=== PATIENT | female | born 2000 | race Caucasian/White ===

== ENCOUNTER → 2018-02-09 | Outpatient (CLI) | payer BC ==
[2018-02-10 03:18] LABS: Dermato. farinae IgE 0.44 kU/L; Egg White IgE 0.18 kU/L; Peanut IgE <0.10 kU/L
[2018-02-10 11:26] LABS: Almond IgE <0.35 kU/L (<0.35); Almond IgE Class CLASS 0; Cashew IgE <0.35 kU/L (<0.35); Crab IgE 0.83 kU/L (<0.35); Crab IgE Class CLASS II; Egg Yolk IgE Class CLASS 0; Pecan IgE <0.35 kU/L (<0.35); Pecan IgE Class CLASS 0; Salmon IgE <0.35 kU/L (<0.35); Salmon IgE Class CLASS 0; Tuna IgE <0.35 kU/L (<0.35); Tuna IgE Class CLASS 0
[2018-02-10 11:27] LABS: Latex IgE Class CLASS 0; Lobster IgE 0.58 kU/L (<0.35); Lobster IgE Class CLASS I
== END | disposition home or self-care (01) ==
LOC: LABWHC1 14:14
PROVIDERS: ATTEND Allergy & Immunology
DX: T78.3XXA Angioneurotic edema, initial encounter (principal)
CPT/HCPCS: 36415; 83520; 86003; 86160

== ENCOUNTER 2018-02-16 16:52 | Emergency (ER) | payer BC ==
[2018-02-16] MEDS ORDERED: methylPREDNISolone SOD SUCCI 125 MG/2 ML VIAL IV STA (16:55)
[2018-02-16] MEDS ORDERED: diphenhydrAMINE 50 MG/ML 1 ML VIAL IVP STA (16:55)
[2018-02-16] MEDS ORDERED: SODIUM CHLORIDE 0.9% 1,000 ML IV STA (16:55)
--- NOTE | 2018-02-16 17:03 | ED ---
General Adult HPI - General Chief complaint: Allergic Reaction Stated complaint: allergic reaction Time Seen by Provider: 02/16/18 16:53 Source: patient, RN notes reviewed Mode of arrival: EMS Limitations: no limitations - History of Present Illness Initial comments: Patient is a pleasant 18-year-old female presenting to the emergency department with ALLERGIC reaction. Patient did have ALLERGY testing done prior to arrival. Patient started getting itchy and feeling that her throat was swelling. Patient did receive oral Benadryl and Pepcid and steroid. Patient was starting to feel better and then symptoms did worsen. Patient did receive an injection of EpiPen. Patient is feeling jittery from that. Patient still feels like her throat is somewhat swollen. Otherwise no dyspnea. - Related Data Home Medications Medication Instructions Recorded Confirmed Albuterol Sulfate [Proair Hfa] 2 puff INHALATION RT-QID PRN 02/16/18 02/16/18 Budesonide/Formoterol Fumarate 2 puff INHALATION RT-BID 02/16/18 02/16/18 [Symbicort 160-4.5 Mcg Inhaler] Fluticasone Nasal [place] [Flonase 1 - 2 spray EA NOSTRIL BID PRN 02/16/18 Nasal [place]] Previous Rx's Medication Instructions Recorded predniSONE 20 mg PO BID #10 tab 02/16/18 Allergies Allergy/AdvReac Type Severity Reaction Status Date / Time iodine Allergy Unknown Verified 02/16/18 17:17 Milk Containing Products Allergy Unknown Verified 02/16/18 17:17 [Dairy] shellfish derived [Shellfish] Allergy Unknown Verified 02/16/18 17:17 soy Allergy Unknown Verified 02/16/18 17:17 Review of Systems ROS Statement: Those systems with pertinent positive or pertinent negative responses have been documented in the HPI. ROS Other: All systems not noted in ROS Statement are negative. Constitutional: Denies: fever Eyes: Denies: eye pain ENT: Denies: ear pain Respiratory: Denies: cough, dyspnea Cardiovascular: Denies: chest pain Endocrine: Denies: fatigue Gastrointestinal: Denies: abdominal pain Genitourinary: Denies: dysuria Musculoskeletal: Denies: back pain Skin: Reports: rash (Resolved) Neurological: Denies: weakness Past Medical History Past Medical History: Asthma History of Any Multi-Drug Resistant Organisms: None Reported Past Surgical History: No Surgical Hx Reported Past Psychological History: No Psychological Hx Reported Smoking Status: Never smoker Past Alcohol Use History: None Reported Past Drug Use History: None Reported General Exam Limitations: no limitations General appearance: alert, in no apparent distress Head exam: Present: atraumatic Eye exam: Present: normal appearance, PERRL ENT exam: Present: normal oropharynx, other (No signs of angioedema of the face , tongue, or pharynx.) Neck exam: Present: normal inspection Respiratory exam: Present: normal lung sounds bilaterally Cardiovascular Exam: Present: regular rate, normal rhythm GI/Abdominal exam: Present: soft. Absent: tenderness Extremities exam: Present: normal inspection Neurological exam: Present: alert Psychiatric exam: Present: normal affect, normal mood Skin exam: Present: other (Trace amount of erythema on the back in a scratching type pattern) Course Vital Signs 02/16/18 16:56 Temperature 98 F Pulse Rate 122 H Respiratory 18 Rate Blood Pressure 164/84 O2 Sat by Pulse 100 Oximetry - Reevaluation(s) Reevaluation #1: 02/16/18 17:33 Patient is reevaluated and states she is feeling better. Medical Decision Making - Medical Decision Making Patient reevaluated and is symptom-free. Patient requesting discharge home. Patient denies dyspnea. Patient updated on need to continue Benadryl for the next 5 days and need for follow-up as well as need to return if symptoms worsen. Disposition Clinical Impression: Allergic reaction Disposition: HOME SELF-CARE Condition: Stable Instructions: Allergies (ED), Anaphylaxis (ED) Additional Instructions: Please follow-up with your wildlife policy professional and primary care physician in the next day or 2 for recheck. Return for any swelling of the throat or tongue or face, any difficulty in breathing, worsening symptoms or any other concerns. Continue with Benadryl: 25-50 mg 4 times a day for the next 5 days. Prescriptions: predniSONE 20 mg PO BID #10 tab Is patient prescribed a controlled substance at d/c from ED?: No Referrals: Mary Dacosta MD [STAFF PHYSICIAN] - 1-2 days Time of Disposition: 20:16
[2018-02-16 20:33] VITALS: BP 124/66; PULSE 100; RESP 20; TEMP 97.5
== END 2018-02-16 20:33 | disposition home or self-care (01) ==
LOC: EC 16:52
DX: T78.40XA Allergy, unspecified, initial encounter (principal); J45.909 Unspecified asthma, uncomplicated; Z91.011 Allergy to milk products; Z91.013 Allergy to seafood; Z91.018 Allergy to other foods; Z91.048 Other nonmedicinal substance allergy status; Z79.51 Long term (current) use of inhaled steroids
CPT/HCPCS: 99285; 96374; 96375; 96361 ×3; J1200; J2930

== ENCOUNTER 2018-02-18 00:51 | Emergency (ER) | payer BC ==
[2018-02-18] MEDS ORDERED: FAMOTIDINE 20 MG/2 ML VIAL IV STA (01:08)
[2018-02-18] MEDS ORDERED: methylPREDNISolone SOD SUCCI 125 MG/2 ML VIAL IV STA (01:08)
--- NOTE | 2018-02-18 01:13 | ED ---
Allergic Reaction HPI - General Chief complaint: Allergic Reaction Stated complaint: allergic reaction Time Seen by Provider: 02/18/18 01:01 Source: patient, family Mode of arrival: ambulatory Limitations: no limitations - History of Present Illness Initial Comments: 18-year-old female patient presents to the emergency department today for complaints of bilateral hand and throat swelling. Patient states that she had ALLERGY testing performed yesterday and had of that reaction while at the office. Patient states that they administered 4 doses of EpiPen at the office which did not help or improve her symptoms with a central here for further evaluation. Patient was seen here and received additional medication and eventually patient was able to be discharged home. Patient states that she did take 50 mg of prednisone this morning around 0900. Patient states that she went to bed and was feeling fine however woke up about an hour ago with hand swelling and felt like her throat was swollen. Patient states it is difficult to swallow. She denies any shortness of breath or chest pain. Denies any itching or rash. Patient did take 50 mg of Benadryl by mouth at midnight. Patient denies any recent rash, fever, chills, abdominal pain, nausea, vomiting , diarrhea, constipation, back pain, numbness, tingling, dizziness, weakness, hematuria, dysuria, urinary urgency, urinary frequency, headache, visual changes , or any other complaints. - Related Data Home Medications Medication Instructions Recorded Confirmed Albuterol Sulfate [Proair Hfa] 2 puff INHALATION RT-QID PRN 02/16/18 02/18/18 Budesonide/Formoterol Fumarate 2 puff INHALATION RT-BID 02/16/18 02/18/18 [Symbicort 160-4.5 Mcg Inhaler] Fluticasone Nasal [place] [Flonase 1 - 2 spray EA NOSTRIL BID PRN 02/16/18 Nasal [place]] Previous Rx's Medication Instructions Recorded predniSONE 20 mg PO BID #10 tab 02/16/18 Allergies Allergy/AdvReac Type Severity Reaction Status Date / Time iodine Allergy Unknown Verified 02/18/18 00:58 Milk Containing Products Allergy Unknown Verified 02/18/18 00:58 [Dairy] shellfish derived [Shellfish] Allergy Unknown Verified 02/18/18 00:58 soy Allergy Unknown Verified 02/18/18 00:58 Review of Systems ROS Statement: Those systems with pertinent positive or pertinent negative responses have been documented in the HPI. ROS Other: All systems not noted in ROS Statement are negative. Past Medical History Past Medical History: Asthma History of Any Multi-Drug Resistant Organisms: None Reported Past Surgical History: No Surgical Hx Reported Past Psychological History: No Psychological Hx Reported Smoking Status: Never smoker Past Alcohol Use History: None Reported Past Drug Use History: None Reported General Exam Limitations: no limitations General appearance: alert, in no apparent distress, other (This is a well- developed, well-nourished adult female patient in no acute distress. Vital signs upon presentation are temperature 98.3F, pulse 80, respirations 20, blood pressure 144/92, pulse ox 98% on room air.) Eye exam: Present: normal appearance, PERRL, EOMI. Absent: scleral icterus, conjunctival injection, periorbital swelling ENT exam: Present: normal exam, normal oropharynx, mucous membranes moist, other (No obvious lip, tongue, or throat swelling.) Respiratory exam: Present: normal lung sounds bilaterally. Absent: respiratory distress, wheezes, rales, rhonchi, stridor Cardiovascular Exam: Present: regular rate, normal rhythm, normal heart sounds. Absent: systolic murmur, diastolic murmur, rubs, gallop, clicks GI/Abdominal exam: Present: soft, normal bowel sounds. Absent: distended, tenderness, guarding, rebound, rigid Neurological exam: Present: alert, oriented X3, CN II-XII intact Psychiatric exam: Present: normal affect, normal mood Skin exam: Present: warm, dry, intact, normal color. Absent: rash Course Vital Signs 02/18/18 02/18/18 02/18/18 00:53 01:22 02:55 Temperature 98.3 F 97.8 F Pulse Rate 80 90 Respiratory 20 19 18 Rate Blood Pressure 144/92 130/67 O2 Sat by Pulse 98 98 Oximetry Medical Decision Making - Medical Decision Making 18-year-old female patient presented to the emergency department this evening for evaluation of ALLERGIC reaction. Patient presented with some throat swelling and bilateral hand swelling. Patient did take 50 mg of Benadryl prior to arrival. In the department she received 20 mg of Pepcid IV as well as 125 mg of Solu-Medrol. Patient was monitored for a 2 hour period. Upon reevaluation she states that she did have decreased in the throat swelling and her hand swelling has decreased. She is feeling better. She does feel comfortable being discharged home at this time. She is instructed to follow-up with her primary care physician for recheck as soon as possible. She is instructed to continue taking Benadryl as needed, [id number] Pepcid, and the steroid she was prescribed a couple of days ago. Return parameters were discussed in detail. She verbalizes understanding and agrees with this plan. Disposition Clinical Impression: Allergic reaction Disposition: HOME SELF-CARE Condition: Good Instructions: General Allergic Reaction (ED) Additional Instructions: Continue home medications. Follow up with her primary care physician for recheck as soon as possible. Return here immediately for any new, worsening, or concerning symptoms. Is patient prescribed a controlled substance at d/c from ED?: No Referrals: None,Stated [Primary Care Provider] - 1-2 days Time of Disposition: 02:55
[2018-02-18 02:57] VITALS: BP 130/67; PULSE 90; RESP 18; TEMP 97.8
== END 2018-02-18 02:59 | disposition home or self-care (01) ==
LOC: EC 00:51
DX: T78.40XA Allergy, unspecified, initial encounter (principal); J45.909 Unspecified asthma, uncomplicated; Z79.51 Long term (current) use of inhaled steroids; Z91.011 Allergy to milk products; Z91.013 Allergy to seafood; Z91.018 Allergy to other foods; Z88.8 Allergy status to other drugs, medicaments and biological substances
CPT/HCPCS: 99283; 96374; 96375; J2930

== ENCOUNTER 2018-02-19 16:55 | Emergency (ER) | payer BC ==
[2018-02-19 17:00] VITALS: RESP 18
[2018-02-19] MEDS ORDERED: predniSONE 20 MG TAB PO STA (17:17)
[2018-02-19] MEDS ORDERED: FAMOTIDINE 20 MG TAB PO STA (17:17)
--- NOTE | 2018-02-19 17:21 | ED ---
General Adult HPI - General Chief complaint: Allergic Reaction Stated complaint: swelling hands and face Time Seen by Provider: 02/19/18 17:01 Source: patient Mode of arrival: ambulatory Limitations: no limitations - History of Present Illness Initial comments: Patient is a 18-year-old female who presents with a chief complaint of an ALLERGIC reaction. The patient states that she recently had ALLERGY testing to identify what caused her initial ALLERGIC reaction. While having her scratch test performed the patient had an anaphylactic reaction to the testing and required multiple doses of epinephrine and was ultimately sent to the hospital. Patient currently has been treated for an ALLERGIC reaction for approximately 3 days. The patient states that overall her symptoms are better however she is experiencing fluctuation of her symptoms at home. The patient cannot identify a specific trigger that makes her symptoms worse however today she states that she felt like her throat was closing and she came to the emergency department. She is here with her mother. She states that since being out of her house her symptoms have improved. The patient states she is currently taking 20 mg of prednisone twice daily along with 50 mg of Benadryl every 4 hours. Patient states that she is ALLERGIC to cats and that there is a cat in the house. Currently the patient says that her symptoms are improving and that she feels well. - Related Data Home Medications Medication Instructions Recorded Confirmed Albuterol Sulfate [Proair Hfa] 2 puff INHALATION RT-QID PRN 02/16/18 02/19/18 Budesonide/Formoterol Fumarate 2 puff INHALATION RT-BID 02/16/18 02/19/18 [Symbicort 160-4.5 Mcg Inhaler] diphenhydrAMINE [Benadryl] 50 mg PO Q4H PRN 02/19/18 02/19/18 predniSONE 20 mg PO BID PRN 02/19/18 02/19/18 Previous Rx's Medication Instructions Recorded Cetirizine HCl [Zyrtec] 10 mg PO DAILY #30 tab 02/19/18 Allergies Allergy/AdvReac Type Severity Reaction Status Date / Time iodine Allergy Unknown Verified 02/19/18 17:35 Milk Containing Products Allergy Unknown Verified 02/19/18 17:35 [Dairy] shellfish derived [Shellfish] Allergy Unknown Verified 02/19/18 17:35 soy Allergy Unknown Verified 02/19/18 17:35 Review of Systems ROS Statement: Those systems with pertinent positive or pertinent negative responses have been documented in the HPI. ROS Other: All systems not noted in ROS Statement are negative. Respiratory: Reports: dyspnea Past Medical History Past Medical History: Asthma History of Any Multi-Drug Resistant Organisms: None Reported Past Surgical History: No Surgical Hx Reported Past Psychological History: No Psychological Hx Reported Smoking Status: Never smoker Past Alcohol Use History: None Reported Past Drug Use History: None Reported General Exam Limitations: no limitations General appearance: alert, in no apparent distress Head exam: Present: atraumatic, normocephalic Eye exam: Present: normal appearance ENT exam: Present: normal exam, mucous membranes moist Neck exam: Present: normal inspection Respiratory exam: Present: normal lung sounds bilaterally. Absent: respiratory distress, wheezes, stridor Cardiovascular Exam: Present: regular rate, normal rhythm GI/Abdominal exam: Present: soft. Absent: distended, tenderness Rectal exam: Present: deferred Extremities exam: Present: normal inspection Back exam: Present: normal inspection Neurological exam: Present: alert, oriented X3 Psychiatric exam: Present: normal affect, normal mood Skin exam: Present: warm, dry, intact Course Vital Signs 02/19/18 16:58 Temperature 98.1 F Pulse Rate 68 Respiratory 18 Rate Blood Pressure 137/94 O2 Sat by Pulse 99 Oximetry Medical Decision Making - Medical Decision Making Patient presents with a chief complaint of ALLERGIC reaction. On initial evaluation, vital signs are stable, patient is in no acute distress. She is not having any respiratory difficulties, she has no trouble swallowing, there is no stridor on exam. There is no rash on exam. I had a lengthy discussion with the patient regarding triggers and the necessity to remove known triggers from the home. Patient and her mother verbalize understanding. At this time, patient was given 40 mg of prednisone, and 40 mg of Pepcid by mouth. Patient will be observed in the emergency department for a period of time. 6:20 PM On reevaluation, the patient states that she feels totally normal. She does not have any observed ALLERGIC symptoms. I again discussed with them the need to remove triggers from the home. They were instructed to continue taking Benadryl and prednisone as prescribed, Zyrtec was added to the patient's regimen. She was instructed to follow-up with inspector timers in 1-2 days, return to the emergency department if symptoms worsen or change. Disposition Clinical Impression: Allergic reaction Disposition: HOME SELF-CARE Condition: Good Instructions: Anaphylaxis (ED) Prescriptions: Cetirizine HCl [Zyrtec] 10 mg PO DAILY #30 tab Is patient prescribed a controlled substance at d/c from ED?: No Referrals: None,Stated [Primary Care Provider] - 1-2 days
[2018-02-19 18:28] VITALS: BP 126/85; PULSE 78; TEMP 98
== END 2018-02-19 18:26 | disposition home or self-care (01) ==
LOC: EC 16:55
DX: T78.40XA Allergy, unspecified, initial encounter (principal); J45.909 Unspecified asthma, uncomplicated; Z79.51 Long term (current) use of inhaled steroids; Z91.048 Other nonmedicinal substance allergy status; Z91.011 Allergy to milk products; Z91.013 Allergy to seafood; Z91.018 Allergy to other foods
CPT/HCPCS: 99283; J7512

== ENCOUNTER → 2018-04-13 | Outpatient (CLI) | payer BC ==
[2018-04-13 19:32] LABS: Basophils % (A) 0 %; Eosinophils # (A) 0.1 k/uL (0-0.7); Eosinophils % (A) 1 %; HGB 12.9 gm/dL (11.4-16.0); Lymphocytes # (A) 2.3 k/uL (1.0-4.8); Lymphocytes % (A) 29 %; MCH 30.1 pg (25.0-35.0); MCV 88.5 fL (80.0-100.0); Mean Platelet Volume 7.2; Monocytes # (A) 0.5 k/uL (0-1.0); Monocytes % (A) 6 %; Neutrophils # (A) 4.7 k/uL (1.3-7.7); Neutrophils % (A) 60 %; Platelet Count 193 k/uL (150-450); RBC 4.29 m/uL (3.80-5.40); RDW 12.8 % (11.5-15.5); WBC 7.9 k/uL (4.0-11.0)
== END | disposition home or self-care (01) ==
LOC: LABWHC1 16:55
PROVIDERS: ATTEND Allergy & Immunology
DX: J45.40 Moderate persistent asthma, uncomplicated (principal)
CPT/HCPCS: 36415; 82785; 85025

== ENCOUNTER 2020-07-31 16:22 | Emergency (ER) | payer BC, OTHER ==
[2020-07-31 16:27] VITALS: TEMP 97.8
[2020-07-31] MEDS ORDERED: methylPREDNISolone SOD SUCCI 125 MG/2 ML VIAL IV STA (16:35)
[2020-07-31] MEDS ORDERED: SODIUM CHLORIDE 0.9% 500 ML 500 ML IV STA (16:36)
--- NOTE | 2020-07-31 16:48 | ED ---
Allergic Reaction HPI - General Chief complaint: Allergic Reaction Stated complaint: Allergic Reaction Time Seen by Provider: 07/31/20 16:30 Source: patient, RN notes reviewed Mode of arrival: ambulatory Limitations: no limitations - History of Present Illness Initial Comments: 21-year-old white female patient presents to the emergency room with family member, states that she suspects a food cross contamination/exposure to shellfish today and she has an ALLERGIC reaction shellfish. states did take 50 mg of Benadryl and 20 mg of Pepcid 30 minutes prior to arrival states did not use her EpiPen. Patient appears anxious states feels as though her tongue and throat are swelling. Patient's voice is clear, lung sounds are clear to auscultation in all lung tucker. Oropharynx is open without edema or redness or swelling. Exposure: food Symptoms: other Severity: mild Treatment Prior to Arrival: benadryl, other (pepcid) - Related Data Home Medications Medication Instructions Recorded Confirmed Albuterol Sulfate [Proair Hfa] 2 puff INHALATION RT-QID PRN 02/16/18 02/19/18 Budesonide/Formoterol Fumarate 2 puff INHALATION RT-BID 02/16/18 02/19/18 [Symbicort 160-4.5 Mcg Inhaler] diphenhydrAMINE [Benadryl] 50 mg PO Q4H PRN 02/19/18 02/19/18 predniSONE 20 mg PO BID PRN 02/19/18 02/19/18 Previous Rx's Medication Instructions Recorded Cetirizine HCl [Zyrtec] 10 mg PO DAILY #30 tab 02/19/18 predniSONE [Deltasone] 20 mg PO DAILY 5 Days #5 tab 07/31/20 Allergies Allergy/AdvReac Type Severity Reaction Status Date / Time iodine Allergy Unknown Verified 07/31/20 16:27 Milk Containing Products Allergy Unknown Verified 07/31/20 16:27 [Dairy] shellfish derived [Shellfish] Allergy Unknown Verified 07/31/20 16:27 soy Allergy Unknown Verified 07/31/20 16:27 Review of Systems ROS Statement: Those systems with pertinent positive or pertinent negative responses have been documented in the HPI. ROS Other: All systems not noted in ROS Statement are negative. Past Medical History Past Medical History: Asthma History of Any Multi-Drug Resistant Organisms: None Reported Past Surgical History: No Surgical Hx Reported Past Psychological History: No Psychological Hx Reported Smoking Status: Never smoker Past Alcohol Use History: Occasional Past Drug Use History: None Reported General Exam - General Exam Comments Initial Comments: Patient sitting on side of bed in no acute distress. Orapharynx without swelling edema or erythema. no rashes or hives noted. No nausea vomiting. No dysphonia, no cough, lung sounds are clear no wheezing. Patient denies chest pain or feeling faint. Limitations: no limitations General appearance: alert, in no apparent distress, anxious Head exam: Present: atraumatic, normocephalic, normal inspection Eye exam: Present: normal appearance, PERRL, EOMI. Absent: scleral icterus, conjunctival injection, periorbital swelling ENT exam: Present: normal exam, mucous membranes moist Neck exam: Present: normal inspection. Absent: tenderness, meningismus, lymphadenopathy Respiratory exam: Present: normal lung sounds bilaterally. Absent: respiratory distress, wheezes, rales, rhonchi, stridor GI/Abdominal exam: Present: soft, normal bowel sounds. Absent: distended, tenderness, guarding, rebound, rigid Neurological exam: Present: alert, oriented X3, CN II-XII intact Psychiatric exam: Present: anxious Skin exam: Present: warm, dry, intact, normal color. Absent: rash Course Vital Signs 07/31/20 07/31/20 16:23 16:57 Temperature 97.8 F Pulse Rate 117 H Respiratory 99 H 18 Rate Blood Pressure 160/76 O2 Sat by Pulse 99 Oximetry - Reevaluation(s) Time: 17:08 (Patient states feeling much better, felt tongue swelling better. We'll continue to monitor monitoring manager oxygen level maintained 98% room air) Medical Decision Making - Medical Decision Making Patient placed on monitoring manager and continuous pulse ox, IV bolus of normal saline started and solumedrol given. Patient improved after Solu-Medrol and no longer complains of throat or tongue swelling sensations. Lungs lungs are clear to auscultation bilaterally. Heart rate 83, oxygen saturation 100% room air, respiratory rate of 20. States feels ready to go home. Will prescribe prednisone 20 mg a day 5 days, and direct patient to take Pepcid 20 mg a day as previously prescribed. Return if symptoms worsen. Always have EpiPen with her for future allergic reactions. Disposition Clinical Impression: Allergic reaction, Food allergy Narrative: Take prednisone 20mg once a day and Pepcid 20 mg a day. Keep EpiPen with you at all times. Return if shortness of breath or worsening symptoms. Disposition: HOME SELF-CARE Condition: Good Instructions (If sedation given, give patient instructions): Food Allergy (ED) Prescriptions: predniSONE [Deltasone] 20 mg PO DAILY 5 Days #5 tab Is patient prescribed a controlled substance at d/c from ED?: No Referrals: Patricia aJne MD [Primary Care Provider] - 1-2 days Time of Disposition: 17:56
[2020-07-31 17:00] VITALS: RESP 18
[2020-07-31 17:54] VITALS: BP 133/77; PULSE 83
== END 2020-07-31 18:01 | disposition home or self-care (01) ==
LOC: EC 16:22
DX: T78.1XXA Other adverse food reactions, not elsewhere classified, initial encounter (principal); J45.909 Unspecified asthma, uncomplicated; Z79.51 Long term (current) use of inhaled steroids; Z91.048 Other nonmedicinal substance allergy status; Z91.011 Allergy to milk products; Z91.013 Allergy to seafood; Z91.018 Allergy to other foods
CPT/HCPCS: 99284; 96374; 96361; J2930

== ENCOUNTER 2022-01-13 22:02 | Emergency (ER) | payer OTHER ==
[2022-01-13 22:44] VITALS: RESP 18; TEMP 99.1
[2022-01-14] MEDS ORDERED: DEXAMETHASONE SOD PHOSPHATE 10 MG/ML 1 ML VIAL IM STA (00:48)
--- NOTE | 2022-01-14 00:52 | ED ---
ENT HPI - General Chief complaint: ENT Stated complaint: Throat Swelling Time Seen by Provider: 01/14/22 00:39 Source: patient, RN notes reviewed Mode of arrival: ambulatory Limitations: no limitations - History of Present Illness Initial comments: This is a pleasant 22-year-old female who comes to the ER complaining of sinus congestion, runny nose, scratchy throat, and sinus headache. Patient states she started getting sick on Wednesday and it was getting worse. Patient went to urgent care earlier today and was tested for COVID-19 which she has yet to receive the results from. Patient also was tested for strep which was negative. Patient denying any shortness of breath or chest pain. 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 Patient did have COVID-19 in November. no fever or chills, no changes in vision or hearing, no earache, eye pain, or difficulty with speech, no neck pain, no chest pain or shortness of breath, no abdominal pain, no nausea or vomiting, no changes in urination or bowel movements, no numbness or tingling, no extremity pain, no skin rashes or lesions. Past medical, surgical, social, and family history reviewed. - Related Data Home Medications Medication Instructions Recorded Confirmed Albuterol Sulfate [Proair Hfa] 2 puff INHALATION RT-QID PRN 02/16/18 02/19/18 Budesonide/Formoterol Fumarate 2 puff INHALATION RT-BID 02/16/18 02/19/18 [Symbicort 160-4.5 Mcg Inhaler] diphenhydrAMINE [Benadryl] 50 mg PO Q4H PRN 02/19/18 02/19/18 predniSONE 20 mg PO BID PRN 02/19/18 02/19/18 Previous Rx's Medication Instructions Recorded Cetirizine HCl [Zyrtec] 10 mg PO DAILY #30 tab 02/19/18 predniSONE [Deltasone] 20 mg PO DAILY 5 Days #5 tab 07/31/20 Allergies Allergy/AdvReac Type Severity Reaction Status Date / Time iodine Allergy Unknown Verified 01/13/22 22:44 Milk Containing Products Allergy Unknown Verified 01/13/22 22:44 [Dairy] shellfish derived [Shellfish] Allergy Unknown Verified 01/13/22 22:44 soy Allergy Unknown Verified 01/13/22 22:44 Review of Systems ROS Statement: Those systems with pertinent positive or pertinent negative responses have been documented in the HPI. ROS Other: All systems not noted in ROS Statement are negative. Past Medical History Past Medical History: Asthma Additional Past Medical History / Comment(s): COVID NOVEMBER OF 2021 History of Any Multi-Drug Resistant Organisms: None Reported Past Surgical History: No Surgical Hx Reported Past Psychological History: No Psychological Hx Reported Smoking Status: Never smoker Past Alcohol Use History: Occasional Past Drug Use History: None Reported General Exam - General Exam Comments Initial Comments: Healthy-appearing 22-year-old female in no significant distress. Appears to be mildly ill with symptoms consistent with upper respiratory infection. Vital signs reviewed, patient appears to be adequately hydrated. Cranial nerves II through XII grossly intact Limitations: no limitations General appearance: alert, in no apparent distress Head exam: Present: atraumatic, normocephalic, normal inspection Eye exam: Present: normal appearance, PERRL, EOMI. Absent: scleral icterus, conjunctival injection, periorbital swelling ENT exam: Present: normal exam, mucous membranes moist, TM's normal bilaterally, normal external ear exam, other (Clear runny nose, no sinus tenderness, nontender posterior cervical lymphadenopathy, negative Brudzinski's and Kernig's). Absent: normal oropharynx (Patient does have some evidence of clear postnasal drainage with cobblestoning), mucous membranes dry Expanded Ear exam: Present: normal external inspection Mouth exam: Present: normal external inspection. Absent: drooling, trismus, tongue normal, tongue elevation Teeth exam: Present: normal inspection. Absent: dental caries Throat exam: normal inspection. negative: tonsillar erythema, tonsillomegaly, tonsillar exudate, R peritonsillar mass, L peritonsillar mass Neck exam: Present: normal inspection, full ROM. Absent: tenderness, meningismus, lymphadenopathy Respiratory exam: Present: normal lung sounds bilaterally. Absent: respiratory distress, wheezes, rales, rhonchi, stridor Cardiovascular Exam: Present: regular rate, normal rhythm, normal heart sounds. Absent: systolic murmur, diastolic murmur, rubs, gallop, clicks GI/Abdominal exam: Present: soft, normal bowel sounds. Absent: distended, tenderness, guarding, rebound, rigid Extremities exam: Present: normal inspection, full ROM, normal capillary refill. Absent: tenderness, pedal edema, joint swelling, calf tenderness Back exam: Present: normal inspection Neurological exam: Present: alert, oriented X3, CN II-XII intact Psychiatric exam: Present: normal affect, normal mood Skin exam: Present: warm, dry, intact, normal color. Absent: rash Course Vital Signs 01/13/22 22:42 Temperature 99.1 F Pulse Rate 97 Respiratory 18 Rate Blood Pressure 145/84 O2 Sat by Pulse 97 Oximetry - Reevaluation(s) Reevaluation #1: 01/14/22 02:46 Medical record is reviewed Symptoms are improved here in the emergency department Patient is informed of results and questions answered Patient in no distress 19 testing negative Medical Decision Making - Medical Decision Making Septostomy most consistent with a viral upper respiratory infection, likely a common cold. However this could be COVID-19. We'll repeat this test. This is not consistent with streptococcal pharyngitis. Patient's lungs are clear. I did offer a chest x-ray. Patient asking for something for her scratchy throat. Patient has already been taking [id number] antipyretics and cough medicine. When he give 1 dose of dexamethasone. Patient was told to return to the ER for any signs or symptoms worsen. Told to return immediately if any other problems arise. All questions answered. Treatment plan discussed. Patient in agreement Every effort has been made to ensure accuracy of this dictation. However, due to the limitations of electronic medical records and dictation devices, errors in charting still occur. Network Cabler Dr. Rubio - Lab Data Lab Results 01/14/22 Range/Units 00:57 Coronavirus (PCR) Not Detected (Not Detectd) Disposition Clinical Impression: Viral URI Disposition: HOME SELF-CARE Condition: Good Instructions (If sedation given, give patient instructions): Upper Respiratory Infection (ED) Additional Instructions: No headache, no fever or chills, no changes in vision or hearing, no sore throat or difficulty with speech, no neck pain, no chest pain or shortness of breath, no abdominal pain, no nausea or vomiting, no changes in urination or bowel movements, no numbness or tingling, no extremity pain, no skin rashes or lesions. Past medical, surgical, social, and family history reviewed. Is patient prescribed a controlled substance at d/c from ED?: No Referrals: Deysi White MD [Primary Care Provider] - 01/21/22 Time of Disposition: 02:45
[2022-01-14 03:35] VITALS: BP 135/88; PULSE 84
== END 2022-01-14 02:48 | disposition home or self-care (01) ==
LOC: EC 22:02
DX: J06.9 Acute upper respiratory infection, unspecified (principal); J45.909 Unspecified asthma, uncomplicated; Z91.041 Radiographic dye allergy status; Z91.011 Allergy to milk products; Z91.013 Allergy to seafood; Z91.018 Allergy to other foods; Z79.51 Long term (current) use of inhaled steroids; Z79.899 Other long term (current) drug therapy; Z20.822 Contact with and (suspected) exposure to COVID-19
CPT/HCPCS: 87635; 96372; 99284